=== PATIENT | male | born 1955 | race Caucasian/White ===

== ENCOUNTER → 2017-04-22 | Outpatient (CLI) | payer BC ==
--- NOTE | 2017-04-22 15:59 | REP ---
Clinical: Strain. Technique: Internal rotation, external rotation, and Y view of the left shoulder. Findings: Age-related cortical irregularity at the acromioclavicular joint is appreciated. No significant osteophytes or periarticular calcifications are identified. There is no evidence for acute fracture dislocation. Subacromial space is normal. Impression: Mild age-related changes. Signed by Jas Broussard MD 04/22/2017 02:33 P
== END ==
LOC: M WUC 14:07
PROVIDERS: ATTEND Physician Assistant
DX: S46.011A Strain of muscle(s) and tendon(s) of the rotator cuff of right shoulder, initial encounter (principal); X58.XXXA Exposure to other specified factors, initial encounter; Y93.9 Activity, unspecified; Y92.9 Unspecified place or not applicable; Y99.8 Other external cause status

== ENCOUNTER → 2017-07-29 | Outpatient (CLI) | payer BC | LOC: M LAB 08:49 | DX: Z13.29 Encounter for screening for other suspected endocrine disorder (principal) ==

== ENCOUNTER → 2018-12-23 | Outpatient (CLI) | payer BC ==
[2018-12-23 12:10] LABS: BASO # 0.1 10^3/uL (0.0-0.2); BASO % 1.1 % (0.0-1.0); EOS # 0.7 10^3/uL (0.0-0.50); EOS % 14.2 % (0.0-3.0); HEMATOCRIT 44.3 % (42.0-52.0); HEMOGLOBIN 15.5 g/dl (13.5-17.5); LYMPH # 2.2 10^3/uL (1.5-4.5); LYMPH % 41.8 % (24.0-44.0); MEAN CORPUSCULAR HEMOGLOBIN 32.6 pg (27.0-33.0); MEAN CORPUSCULAR VOLUME 93.1 fl (80.0-96.0); MONO # 0.4 10^3/uL (0.0-0.8); MONO % 8.2 % (0.0-5.0); NEUTROPHILS # 1.8 10^3/uL (1.8-7.7); NEUTROPHILS % 34.5 % (36.0-66.0); PLATELET COUNT, AUTOMATED 166 10^3/uL (150-450); RED BLOOD COUNT 4.76 10^6/uL (4.30-6.10); WHITE BLOOD COUNT 5.2 10^3/uL (4.0-10.0)
[2018-12-23 12:22] LABS: ALBUMIN 3.7 GM/DL (3.2-5.2); ALT/SGPT 168 U/L (12-78); BILIRUBIN,TOTAL 0.8 MG/DL (0.2-1.0); BLOOD UREA NITROGEN 13 MG/DL (7-18); CALCIUM LEVEL 8.5 MG/DL (8.8-10.2); CARBON DIOXIDE LEVEL 30 MEQ/L (21-32); CHLORIDE LEVEL 104 MEQ/L (98-107); CHOLESTEROL LEVEL 202 MG/DL (<200); CHOLESTEROL RISK RATIO 2.556 (<5); CREATININE FOR GFR 0.81 MG/DL (0.70-1.30); GLOMERULAR FILTRATION RATE > 60.0 (>49); GLUCOSE, FASTING 94 MG/DL (70-100); HDL CHOLESTEROL 79 MG/DL (>40); LDL CHOLESTEROL 111 MG/DL (<100); NON-HDL-C 123 MG/DL; POTASSIUM SERUM 4.3 MEQ/L (3.5-5.1); PROSTATIC SPECIFIC AG MONITOR 1.37 NG/ML (< 4.00); SODIUM LEVEL 140 MEQ/L (136-145); TOTAL PROTEIN 6.5 GM/DL (6.4-8.2); TRIGLYCERIDES LEVEL 61 MG/DL (<150)
[2018-12-23 12:39] LABS: HEMOGLOBIN A1c 5.2 %
== END ==
LOC: M WUC 09:09
PROVIDERS: ATTEND Nurse Practitioner Adult Health
DX: E55.9 Vitamin D deficiency, unspecified (principal); Z79.899 Other long term (current) drug therapy; Z83.3 Family history of diabetes mellitus; Z83.42 Family history of familial hypercholesterolemia; Z80.42 Family history of malignant neoplasm of prostate

== ENCOUNTER → 2019-12-16 | Outpatient (CLI) | payer BC ==
[2019-12-16 13:32] LABS: BASO # 0.1 10^3/uL (0.0-0.2); BASO % 0.9 % (0.0-1.0); EOS # 0.5 10^3/uL (0.0-0.5); EOS % 9.5 % (0.0-3.0); HEMOGLOBIN 15.6 g/dl (13.5-17.5); LYMPH # 2.1 10^3/uL (1.5-5.0); LYMPH % 38.6 % (24.0-44.0); MEAN CORPUSCULAR HEMOGLOBIN 32.2 pg (27.0-33.0); MEAN CORPUSCULAR HGB CONC 33.2 g/dl (32.0-36.5); MEAN CORPUSCULAR VOLUME 96.9 fl (80.0-96.0); MONO # 0.5 10^3/uL (0.0-0.8); MONO % 8.6 % (0.0-5.0); NEUTROPHILS # 2.3 10^3/uL (1.5-8.5); NEUTROPHILS % 42.2 % (36.0-66.0); PLATELET COUNT, AUTOMATED 193 10^3/uL (150-450); RED BLOOD COUNT 4.85 10^6/uL (4.30-6.10); WHITE BLOOD COUNT 5.5 10^3/uL (4.0-10.0)
[2019-12-16 13:46] LABS: ALBUMIN 3.9 GM/DL (3.2-5.2); ALT/SGPT 123 U/L (12-78); BILIRUBIN,TOTAL 0.8 MG/DL (0.2-1.0); BLOOD UREA NITROGEN 12 MG/DL (7-18); CARBON DIOXIDE LEVEL 30 MEQ/L (21-32); CHLORIDE LEVEL 106 MEQ/L (98-107); CHOLESTEROL LEVEL 221 MG/DL (<200); CHOLESTEROL RISK RATIO 2.797 (<5); CREATININE FOR GFR 0.97 MG/DL (0.70-1.30); FREE T4 1.22 NG/DL (0.76-1.46); FREE THYROXINE INDEX 3.6 % (1.4-3.8); GLOMERULAR FILTRATION RATE > 60.0 (>49); GLUCOSE, FASTING 93 MG/DL (70-100); HDL CHOLESTEROL 79 MG/DL (>40); LDL CHOLESTEROL 130 MG/DL (<100); NON-HDL-C 142 MG/DL; POTASSIUM SERUM 4.8 MEQ/L (3.5-5.1); SODIUM LEVEL 142 MEQ/L (136-145); T UPTAKE 31 % (33-40); THYROXINE (T4) 11.5 UG/DL (4.5-12.0); TRIGLYCERIDES LEVEL 61 MG/DL (<150)
[2019-12-16 14:04] LABS: HEMOGLOBIN A1c 5.3 %
[2019-12-18 00:06] LABS: PSA TOTAL 1.6 ng/mL (0.0-4.0)
== END ==
LOC: M WUC 09:55
PROVIDERS: ATTEND Nurse Practitioner Adult Health
DX: Z51.81 Encounter for therapeutic drug level monitoring (principal); Z79.899 Other long term (current) drug therapy; E55.9 Vitamin D deficiency, unspecified; Z83.3 Family history of diabetes mellitus; Z80.42 Family history of malignant neoplasm of prostate; R94.5 Abnormal results of liver function studies; E78.00 Pure hypercholesterolemia, unspecified

== ENCOUNTER → 2020-12-14 | Outpatient (CLI) | payer OTHER ==
[2020-12-14 11:40] LABS: BASO # 0.1 10^3/uL (0.0-0.2); BASO % 0.9 % (0.0-1.0); EOS # 0.8 10^3/uL (0.0-0.5); EOS % 12.7 % (0.0-3.0); HEMATOCRIT 45.9 % (42.0-52.0); HEMOGLOBIN 15.2 g/dl (13.5-17.5); LYMPH # 1.9 10^3/uL (1.5-5.0); LYMPH % 29.5 % (24.0-44.0); MEAN CORPUSCULAR HEMOGLOBIN 31.9 pg (27.0-33.0); MEAN CORPUSCULAR HGB CONC 33.1 g/dl (32.0-36.5); MEAN CORPUSCULAR VOLUME 96.4 fl (80.0-96.0); MONO # 0.5 10^3/uL (0.0-0.8); MONO % 8.1 % (0.0-5.0); NEUTROPHILS # 3.1 10^3/uL (1.5-8.5); NEUTROPHILS % 48.5 % (36.0-66.0); PLATELET COUNT, AUTOMATED 217 10^3/uL (150-450); RED BLOOD COUNT 4.76 10^6/uL (4.30-6.10); WHITE BLOOD COUNT 6.5 10^3/uL (4.0-10.0)
[2020-12-14 11:55] LABS: HEMOGLOBIN A1c 5.1 %
[2020-12-14 12:51] LABS: ALBUMIN 3.9 GM/DL (3.2-5.2); ALT/SGPT 52 U/L (12-78); BILIRUBIN,TOTAL 0.7 MG/DL (0.2-1.0); BLOOD UREA NITROGEN 12 MG/DL (7-18); CALCIUM LEVEL 8.8 MG/DL (8.8-10.2); CARBON DIOXIDE LEVEL 30 MEQ/L (21-32); CHLORIDE LEVEL 107 MEQ/L (98-107); CHOLESTEROL LEVEL 209 MG/DL (<200); CHOLESTEROL RISK RATIO 2.402 (<5); CREATININE FOR GFR 0.97 MG/DL (0.70-1.30); FREE T4 1.05 NG/DL (0.76-1.46); FREE THYROXINE INDEX 3.5 % (1.4-3.8); GLOMERULAR FILTRATION RATE > 60.0 (>49); GLUCOSE, FASTING 100 MG/DL (70-100); HDL CHOLESTEROL 87 MG/DL (>40); LDL CHOLESTEROL 109 MG/DL (<100); NON-HDL-C 122 MG/DL; SODIUM LEVEL 142 MEQ/L (136-145); T UPTAKE 34 % (33-40); THYROXINE (T4) 10.3 UG/DL (4.5-12.0); TRIGLYCERIDES LEVEL 65 MG/DL (<150)
[2020-12-15 14:12] LABS: PSA TOTAL 3.1 ng/mL (0.0-4.0)
== END ==
LOC: M WUC 08:59
PROVIDERS: ATTEND Nurse Practitioner Adult Health
DX: E55.9 Vitamin D deficiency, unspecified (principal); E78.00 Pure hypercholesterolemia, unspecified; R94.5 Abnormal results of liver function studies; Z79.899 Other long term (current) drug therapy; Z83.3 Family history of diabetes mellitus

== ENCOUNTER → 2021-06-22 | Outpatient (CLI) | payer MEDICARE ==
[2021-06-22 11:41] LABS: BASO % 0.8 % (0.0-1.0); EOS # 0.4 10^3/uL (0.0-0.5); EOS % 7.6 % (0.0-3.0); HEMATOCRIT 44.7 % (42.0-52.0); HEMOGLOBIN 15.4 g/dl (13.5-17.5); LYMPH # 1.6 10^3/uL (1.5-5.0); LYMPH % 30.4 % (24.0-44.0); MEAN CORPUSCULAR HEMOGLOBIN 33.5 pg (27.0-33.0); MEAN CORPUSCULAR HGB CONC 34.5 g/dl (32.0-36.5); MEAN CORPUSCULAR VOLUME 97.2 fl (80.0-96.0); MONO # 0.4 10^3/uL (0.0-0.8); MONO % 8.2 % (2.0-8.0); NEUTROPHILS # 2.8 10^3/uL (1.5-8.5); NEUTROPHILS % 52.6 % (36.0-66.0); PLATELET COUNT, AUTOMATED 219 10^3/uL (150-450); WHITE BLOOD COUNT 5.3 10^3/uL (4.0-10.0)
[2021-06-22 12:11] LABS: HEMOGLOBIN A1c 5.2 %
[2021-06-22 12:18] LABS: ALBUMIN 3.8 GM/DL (3.2-5.2); ALT/SGPT 45 U/L (12-78); BLOOD UREA NITROGEN 15 MG/DL (7-18); CALCIUM LEVEL 9.1 MG/DL (8.8-10.2); CARBON DIOXIDE LEVEL 32 MEQ/L (21-32); CHLORIDE LEVEL 107 MEQ/L (98-107); CHOLESTEROL LEVEL 206 MG/DL (<200); CHOLESTEROL RISK RATIO 2.543 (<5); CREATININE FOR GFR 0.82 MG/DL (0.70-1.30); FREE THYROXINE INDEX 3.4 % (1.4-3.8); GLOMERULAR FILTRATION RATE > 60.0 (>49); GLUCOSE, FASTING 91 MG/DL (70-100); HDL CHOLESTEROL 81 MG/DL (>40); LDL CHOLESTEROL 115 MG/DL (<100); NON-HDL-C 125 MG/DL; POTASSIUM SERUM 4.2 MEQ/L (3.5-5.1); SODIUM LEVEL 142 MEQ/L (136-145); T UPTAKE 35 % (33-40); THYROXINE (T4) 9.7 UG/DL (4.5-12.0); TRIGLYCERIDES LEVEL 48 MG/DL (<150)
[2021-06-22 12:21] LABS: TOTAL 25(OH) VITAMIN D 42.3 NG/ML (30.0-100.0)
[2021-06-23 08:10] LABS: PSA TOTAL 2.5 ng/mL (0.0-4.0)
== END ==
LOC: M WUC 09:25
PROVIDERS: ATTEND Nurse Practitioner Family
DX: Z00.01 Encounter for general adult medical examination with abnormal findings (principal); Z13.228 Encounter for screening for other metabolic disorders; Z83.3 Family history of diabetes mellitus; E78.00 Pure hypercholesterolemia, unspecified; Z80.42 Family history of malignant neoplasm of prostate; Z11.52 Encounter for screening for COVID-19; E55.9 Vitamin D deficiency, unspecified; R94.6 Abnormal results of thyroid function studies

== ENCOUNTER → 2022-01-11 | Outpatient (CLI) | payer MEDICARE | LOC: M WUC 13:59 | PROVIDERS: ATTEND Nurse Practitioner Family | DX: R06.2 Wheezing (principal) ==

== ENCOUNTER → 2023-02-28 | Outpatient (CLI) | payer MEDICARE | LOC: M RAD 13:31 | PROVIDERS: ATTEND Registered Nurse | DX: R22.1 Localized swelling, mass and lump, neck (principal) ==

== ENCOUNTER → 2025-10-04 | Outpatient (CLI) | payer MEDICARE | LOC: M RAD 11:52 | PROVIDERS: ATTEND Physician Assistant | DX: Z01.818 Encounter for other preprocedural examination (principal); J45.909 Unspecified asthma, uncomplicated; R00.1 Bradycardia, unspecified; I45.19 Other right bundle-branch block; R94.31 Abnormal electrocardiogram [ECG] [EKG] ==